=== PATIENT | male | born 1960 | race Caucasian/White ===

== ENCOUNTER 2017-04-16 02:35 | Inpatient (IN) | payer MEDICARE, OTHER ==
[~2017-04-16] VITALS: Ht 185.4 cm; Wt 115.5 kg
[2017-04-16] VITALS (34 sets, daily range): BP systolic 117–171; BP diastolic 87–112
[~2017-04-16 02:35] MED LIST: AMLO5TAB PO; CLAR250T43 PO; LISI40TA4 PO; PANT-47 PO
[2017-04-16] MEDS ORDERED: ipratropium/albuterol 3ml nebule NEB ONE (02:55)
[2017-04-16 03:18] LABS: BASOPHILS % (AUTO) 0.1 % (0-1); EOSINOPHILS % (AUTO) 0.1 % (0-6); HEMATOCRIT 46.1 % (42.0-52.0); HEMOGLOBIN 15.4 g/dl (14.0-17.9); LYMPHOCYTES # (AUTO) 0.7 X10'3 (1.1-4.8); LYMPHOCYTES % (AUTO) 2.2 % (21-51); MEAN CORPUSCULAR HGB CONC 33.4 % (33.0-36.5); MEAN PLATELET VOLUME 8.4 FL (7.4-10.4); MONOCYTES # (AUTO) 0.5 X10'3 (0-0.9); MONOCYTES % (AUTO) 1.4 % (2-12); NEUTROPHILS # (AUTO) 31.6 X10'3 (1.8-7.7); NEUTROPHILS % (AUTO) 96.2 % (42-75); PLATELET COUNT 351 X10'3 (140-440); RED CELL DISTRIBUTION WIDTH 13.7 % (11.5-14.5)
[2017-04-16 03:20] LABS: WHITE BLOOD COUNT 32.8 X10'3 (4.5-11.0)
[2017-04-16] MEDS ORDERED: normal saline 1000ML IV soln IVB ONE ×2 (03:20→03:35)
[2017-04-16] MEDS ORDERED: levoFLOXACIN-Levaquin 750MG/D5 150 ML IV ONE (03:20)
[2017-04-16 03:26] LABS: LARGE PLATELETS FEW; PLATELET ESTIMATE NORMAL; TOTAL CELLS COUNTED 100; TOXIC GRANULATION 2+; TOXIC VACUOLATION 2+
[2017-04-16 03:36] LABS: ALANINE AMINOTRANSFERASE 32 U/L (12-78); ALBUMIN 3.4 G/DL (3.4-5.0); ALBUMIN/GLOBULIN RATIO 0.7 (1.1-1.5); ALKALINE PHOSPHATASE 127 IU/L (46-116); ANION GAP 10 (8-16); ASPARTATE AMINO TRANSFERASE 37 U/L (10-37); BILIRUBIN,TOTAL 1.2 MG/DL (0.1-1.0); BLOOD UREA NITROGEN 29 MG/DL (7-18); BUN/CREATININE RATIO 18.8 (5.4-32.0); CALCIUM 10.1 MG/DL (8.5-10.1); CHLORIDE 95 MMOL/L (99-107); CREATININE 1.54 MG/DL (0.60-1.10); GLUCOSE 125 MG/DL (70-104); POTASSIUM 4.2 MMOL/L (3.5-5.1); SODIUM 134 MMOL/L (135-145); TOTAL CARBON DIOXIDE 29.4 MMOL/L (24-32); TOTAL PROTEIN 8.6 G/DL (6.4-8.2); eGFR 47 ML/MIN
[2017-04-16 04:06] LABS: ABG BASE EXCESS -5.1 mmol/L (-2.0-3.0); ABG HCO3 19.2 mmol/L (22.0-26.0); ABG PCO2 (T) 32.2 mmHg (35.0-48.0); ABG PO2 (T) 73.2 mmHg (83-108); ALLEN'S TEST Positive; FCOHb 1.3 % (0.5-1.5); FLOW 2 L/min; FO2Hb 93.8 % (94-100); PATIENT TEMPERATURE 36.2; RESPIRATORY RATE (OBSERVED) 28 b/min; TOTAL HEMOGLOBIN 13.1 G/dl (14.0-18.0)
[2017-04-16] MEDS ORDERED: normal saline 1000ml 1,000 ML IV SCH (07:11)
[2017-04-16] MEDS ORDERED: magnesium hydroxide 30ml (MOM) UD suspension PO PRN (07:15)
[2017-04-16] MEDS ORDERED: HYDROmorphone 1 mg/ml syringe IV PRN ×2 (07:15)
[2017-04-16] MEDS ORDERED: acetaminophen 650mg rectal suppository RC PRN (07:15)
[2017-04-16] MEDS ORDERED: ondansetron/PF 4mg/2ml inj IV PRN (07:15)
[2017-04-16] MEDS ORDERED: HYDROcodone/acetaminophen 5mg/325mg tablet PO PRN (07:15)
[2017-04-16] MEDS ORDERED: diphenhydrAMINE 50 mg/ml inj IV PRN (07:15)
[2017-04-16] MEDS ORDERED: bisacodyl 10mg suppository rectal RC PRN (07:15)
[2017-04-16] MEDS ORDERED: metoclopramide 5 mg/ml inj IV PRN (07:15)
[2017-04-16] MEDS ORDERED: morphine sulfate 8 MG/ML SYRINGE IV PRN ×2 (07:15)
[2017-04-16] MEDS ORDERED: mag hydrox/Alum hydrox/simeth 30ml oral suspension PO PRN (07:15)
[2017-04-16] MEDS ORDERED: acetaminophen 325mg tablet PO PRN ×2 (07:15)
[2017-04-16] MEDS: nicotine 21mg patch - 24 hr TD SCH (07:37)
[2017-04-16] MEDS: docusate sod 100mg capsule PO SCH ×2 (07:38→20:07)
[2017-04-16] MEDS ORDERED: pantoprazole 40 MG vial IV SCH (08:00)
[2017-04-16] MEDS ORDERED: heparin, porcine 5000 units/ml vial SQ SCH ×2 (08:00→20:00)
[2017-04-16] MEDS ORDERED: CefTRIAXone 1 gm/50ml D5W ADV 50 ML IV SCH (08:00)
[2017-04-16] MEDS ORDERED: methylPREDNISolone sod succ 125mg/2ml vial IV SCH ×2 (08:00→14:00)
[2017-04-16] MEDS: azithromycin/NS 500mg/250ml 250 ML IV SCH (08:03)
[2017-04-16] MEDS ORDERED: furosemide 10 MG/1 ML 10ml inj IV ONE (11:40)
[2017-04-16] MEDS: diphenhydrAMINE 25mg capsule PO PRN (12:46)
[2017-04-16] MEDS: HYDROcodone/acetaminophen 10/325mg tab PO PRN ×2 (12:47→20:09)
[2017-04-16] MEDS: ipratropium/albuterol 3ml nebule NEB SCH ×2 (13:48→19:00)
[2017-04-16] MEDS: normal saline 1000ml 1,000 ML IV SCH (16:18)
[2017-04-16] MEDS ORDERED: MIDAZolam 5mg/ml 2ml vial ONE (17:04)
[2017-04-16] MEDS ORDERED: fentaNYL/PF 50MCG/1 ML 2ML syringe ONE (17:04)
[2017-04-16] MEDS ORDERED: LIDOcaine 1% 30ml vial IJ STA (17:06)
[2017-04-16] MEDS ORDERED: midazolam 2 mg/2 ml injection IV ONE (17:25)
[2017-04-16] MEDS ORDERED: fentaNYL/PF 50MCG/1 ML 2ML syringe IV ONE (17:25)
[2017-04-16] MEDS: lactobacillus rhamnosus 10,000 MMU CELLS/CAPSULE PO SCH (17:30)
[2017-04-16 19:41] LABS: INR 1.2 INR; PARTIAL THROMBOPLASTIN TIME 36 SECONDS (22-32); PROTHROMBIN TIME 12.7 SECONDS (9.0-12.0)
[2017-04-16] MEDS ORDERED: furosemide 20 MG/2 ML vial IV SCH (20:00)
[2017-04-16 20:28] LABS: BODY FLUID PH (NON-PLEURAL) 6.5
[2017-04-16] MEDS ORDERED: temazepam 15mg capsule PO PRN (21:00)
[2017-04-16 21:12] LABS: LDH,BODY FLUID 4905 U/L; TOTAL PROTEIN,BODY FLUID 5.3 G/DL; TRIGLYCERIDES,BODY FLUID 82 MG/DL
[2017-04-16 22:18] LABS: BFAPPEAR TURBID
[2017-04-16 22:19] LABS: BF RBC COUNT 2000 /CU MM; BF WBC COUNT 76500 /CU MM (0-1000); BFCOLOR YELLOW; BFVOLUME 21 ML
[2017-04-16 22:21] LABS: LYMPHOCYTES,BODY FLUID 2 %; NEUTROPHILS,BODY FLUID 98 %
[2017-04-16] MEDS ORDERED: atropine 0.1mg/ml 10ml syringe ONE (22:38)
[2017-04-16] MEDS ORDERED: iohexol 350 MG/ML 50ML vial IV ONE (22:39)
[2017-04-16 23:11] LABS: MONOCYTES,BODY FLUID 0 %
[2017-04-17] VITALS (29 sets, daily range): BP systolic 112–218; BP diastolic 62–110
[2017-04-17] MEDS: ipratropium/albuterol 3ml nebule NEB SCH ×7 (00:11→23:36)
[2017-04-17] MEDS: normal saline 1000ml 1,000 ML IV SCH (04:28)
[2017-04-17] MEDS ORDERED: mupirocin 2% ointment 22GM NS SCH (05:30)
[2017-04-17] MEDS ORDERED: ceFAZolin inj. 3,000 MG in normal saline 100ml IV soln 100 ML IV ONE (05:30)
[2017-04-17] MEDS ORDERED: ceFAZolin 1000mg inj ONE (06:10)
[2017-04-17] MEDS ORDERED: NORepinephrine 1 mg/ml inj IV ONE (06:10)
[2017-04-17] MEDS ORDERED: BUPIVAcaine/PF 2.5 mg/ml (0.25%) 30ml vial ONE (06:10)
[2017-04-17 06:29] LABS: HEMATOCRIT 40.1 % (42.0-52.0); HEMOGLOBIN 13.1 g/dl (14.0-17.9); MEAN CORPUSCULAR HGB CONC 32.8 % (33.0-36.5); MEAN CORPUSCULAR VOLUME 88.4 FL (78-98); MEAN PLATELET VOLUME 8.7 FL (7.4-10.4); PLATELET COUNT 309 X10'3 (140-440); RED BLOOD COUNT 4.53 X10'6 (4.70-6.10); RED CELL DISTRIBUTION WIDTH 13.6 % (11.5-14.5)
[2017-04-17] MEDS ORDERED: sevoflurane 250ml liquid IH ONE (06:43)
[2017-04-17] MEDS ORDERED: fentaNYL/PF 50MCG/1 ML 2ML syringe ONE ×2 (06:46→06:47)
[2017-04-17] MEDS ORDERED: MIDAZolam 1mg/ml 10ml vial ONE (06:46)
[2017-04-17 06:52] LABS: ALANINE AMINOTRANSFERASE 26 U/L (12-78); ALBUMIN 2.3 G/DL (3.4-5.0); ALBUMIN/GLOBULIN RATIO 0.5 (1.1-1.5); ALKALINE PHOSPHATASE 126 IU/L (46-116); ANION GAP 10 (8-16); ASPARTATE AMINO TRANSFERASE 23 U/L (10-37); BLOOD UREA NITROGEN 27 MG/DL (7-18); CALCIUM 9.5 MG/DL (8.5-10.1); CHLORIDE 102 MMOL/L (99-107); CREATININE 1.23 MG/DL (0.60-1.10); GLUCOSE 136 MG/DL (70-104); POTASSIUM 4.1 MMOL/L (3.5-5.1); SODIUM 141 MMOL/L (135-145); TOTAL CARBON DIOXIDE 28.8 MMOL/L (24-32); TOTAL PROTEIN 7.1 G/DL (6.4-8.2); eGFR 61 ML/MIN
[2017-04-17 07:05] LABS: HYPOCHROMASIA 1+; MICROCYTOSIS 1+; PLATELET ESTIMATE NORMAL; TOTAL CELLS COUNTED 100
[2017-04-17] MEDS: lactobacillus rhamnosus 10,000 MMU CELLS/CAPSULE PO SCH ×2 (07:30→17:04)
[2017-04-17] MEDS: docusate sod 100mg capsule PO SCH ×3 (08:00→20:00)
[2017-04-17 08:35] LABS: WHITE BLOOD COUNT 32.5 X10'3 (4.5-11.0)
[2017-04-17] MEDS ORDERED: pancuronium br 1mg/ml inj IV ONE (08:51)
[2017-04-17] MEDS ORDERED: rocuronium 10mg/ml inj IV ONE (08:51)
[2017-04-17] MEDS ORDERED: etomidate 2mg/ml inj. ONE (08:51)
[2017-04-17] MEDS ORDERED: niCARDipine/sod cl 20mg/200ml 200 ML IV PRN (08:54)
[2017-04-17] MEDS ORDERED: DOPamine 400mg/D5W 250ml 250 ML IV PRN (08:54)
[2017-04-17] MEDS ORDERED: nitroGLYCERIN-Tridil 50MG/D5W 250 ML IV PRN (08:54)
[2017-04-17] MEDS ORDERED: magnesium hydroxide 30ml (MOM) UD suspension PO PRN (08:55)
[2017-04-17] MEDS ORDERED: sodium phosphate inj. 15 MMOL in dextrose 5%-water 150 ML IV PRN (08:55)
[2017-04-17] MEDS ORDERED: acetaminophen 325mg tablet PO PRN (08:55)
[2017-04-17] MEDS ORDERED: magnesium 2GM in 50ml NS 50 ML IV PRN (08:55)
[2017-04-17] MEDS ORDERED: Neutra Phos packet PO PRN (08:55)
[2017-04-17] MEDS ORDERED: metoclopramide 5 mg/ml inj IV PRN (08:55)
[2017-04-17] MEDS ORDERED: sodium phosphate inj. 30 MMOL in dextrose 5%-water 250 ML IV PRN (08:55)
[2017-04-17] MEDS ORDERED: dextrose 50%-water 50ml dispensing syringe IV PRN (08:55)
[2017-04-17] MEDS ORDERED: normal saline 250ml IV soln 250 ML IV PRN (08:55)
[2017-04-17] MEDS ORDERED: potassium Cl 20mEq/100mL bag 100 ML IV PRN ×2 (08:55)
[2017-04-17] MEDS ORDERED: magnesium 4gm in 100ml NS 100 ML IV PRN (08:55)
[2017-04-17] MEDS ORDERED: albumin (Human) 5% 250ml 250 ML IV PRN (08:55)
[2017-04-17] MEDS: insulin Lispro (HumaLOG) vial - multi-dose SQ SCH ×3 (09:00→17:04)
[2017-04-17 09:21] LABS: ABG BASE EXCESS -2.4 mmol/L (-2.0-3.0); ABG HCO3 24.2 mmol/L (22.0-26.0); ABG OXYGEN SATURATION 94.8 % (95-98); ABG PH (T) 7.311 (7.350-7.450); ABG PO2 (T) 79.9 mmHg (83-108); FCOHb 0.4 % (0.5-1.5); FMetHb 0.1 % (0.3-1.12); FO2Hb 94.3 % (94-100); MINUTE VOLUME 8 L/min; PEEP 5 cm H2O; RESPIRATORY RATE 14 b/min; TIDAL VOLUME 600 mL; TOTAL HEMOGLOBIN 13.3 G/dl (14.0-18.0)
[2017-04-17 09:30] LABS: BASOPHILS % (AUTO) 0 % (0-1); EOSINOPHILS % (AUTO) 0 % (0-6); HEMATOCRIT 37.7 % (42.0-52.0); HEMOGLOBIN 12.4 g/dl (14.0-17.9); LYMPHOCYTES # (AUTO) 0.5 X10'3 (1.1-4.8); LYMPHOCYTES % (AUTO) 1.5 % (21-51); MEAN CORPUSCULAR HEMOGLOBIN 28.8 PG (27.0-31.0); MEAN CORPUSCULAR HGB CONC 32.8 % (33.0-36.5); MEAN CORPUSCULAR VOLUME 87.8 FL (78-98); MEAN PLATELET VOLUME 8.4 FL (7.4-10.4); MONOCYTES # (AUTO) 0.2 X10'3 (0-0.9); MONOCYTES % (AUTO) 0.7 % (2-12); NEUTROPHILS # (AUTO) 32.9 X10'3 (1.8-7.7); NEUTROPHILS % (AUTO) 97.8 % (42-75); PLATELET COUNT 322 X10'3 (140-440); RED BLOOD COUNT 4.29 X10'6 (4.70-6.10); RED CELL DISTRIBUTION WIDTH 13.8 % (11.5-14.5)
[2017-04-17 09:34] LABS: WHITE BLOOD COUNT 33.7 X10'3 (4.5-11.0)
[2017-04-17] MEDS ORDERED: labetalol 5mg/ml 20ml inj. IV ONE (09:44)
[2017-04-17 09:45] LABS: INR 1.3 INR; PARTIAL THROMBOPLASTIN TIME 34 SECONDS (22-32); PROTHROMBIN TIME 13.2 SECONDS (9.0-12.0)
[2017-04-17 09:49] LABS: ALANINE AMINOTRANSFERASE 21 U/L (12-78); ALBUMIN 2.1 G/DL (3.4-5.0); ALBUMIN/GLOBULIN RATIO 0.5 (1.1-1.5); ALKALINE PHOSPHATASE 103 IU/L (46-116); ANION GAP 10 (8-16); ASPARTATE AMINO TRANSFERASE 21 U/L (10-37); BILIRUBIN,TOTAL 0.9 MG/DL (0.1-1.0); BLOOD UREA NITROGEN 29 MG/DL (7-18); BUN/CREATININE RATIO 26.6 (5.4-32.0); CALCIUM 8.8 MG/DL (8.5-10.1); CHLORIDE 104 MMOL/L (99-107); CREATININE 1.09 MG/DL (0.60-1.10); GLUCOSE 165 MG/DL (70-104); PHOSPHORUS 4.3 MG/DL (2.3-4.5); SODIUM 139 MMOL/L (135-145); TOTAL CARBON DIOXIDE 25.4 MMOL/L (24-32); TOTAL PROTEIN 6.7 G/DL (6.4-8.2); eGFR 70 ML/MIN
[2017-04-17] MEDS ORDERED: labetalol 20mg/4ml (5mg/ml) syringe IV PRN (09:50)
[2017-04-17] MEDS ORDERED: NICARDIPINE IV ONE (09:55)
[2017-04-17] MEDS ORDERED: SODIUM CHLORIDE IV ONE (09:55)
[2017-04-17] MEDS: azithromycin/NS 500mg/250ml 250 ML IV SCH (10:05)
[2017-04-17] MEDS: sodium chloride 0.45% 1,000 ML IV SCH (10:07)
[2017-04-17] MEDS ORDERED: midazolam 100mg in NS 100ml 100 ML IV PRN (10:39)
[2017-04-17] MEDS ORDERED: FENTANYL-0.9 % NACL/PF 100 ML IV PRN (10:39)
[2017-04-17] MEDS: labetalol 20mg/4ml (5mg/ml) syringe IV PRN ×2 (11:07→13:49)
[2017-04-17] MEDS: nicotine 21mg patch - 24 hr TD SCH (12:09)
[2017-04-17] MEDS: cefTRIAXone 1g/NS 100ml IVPB 100 ML IV SCH (12:09)
[2017-04-17] MEDS: insulin regular, human inj. 100 UNITS in normal saline 100ml IV soln 100 ML IV SCH ×6 (14:07→17:03)
[2017-04-17 15:24] LABS: BASOPHILS # (AUTO) 0.2 X10'3 (0-0.2); BASOPHILS % (AUTO) 0.8 % (0-1); EOSINOPHILS % (AUTO) 0 % (0-6); HEMATOCRIT 34.8 % (42.0-52.0); HEMOGLOBIN 11.7 g/dl (14.0-17.9); LYMPHOCYTES # (AUTO) 0.4 X10'3 (1.1-4.8); LYMPHOCYTES % (AUTO) 1.7 % (21-51); MEAN CORPUSCULAR HEMOGLOBIN 29.2 PG (27.0-31.0); MEAN CORPUSCULAR HGB CONC 33.6 % (33.0-36.5); MEAN CORPUSCULAR VOLUME 86.9 FL (78-98); MEAN PLATELET VOLUME 8.5 FL (7.4-10.4); MONOCYTES # (AUTO) 0.9 X10'3 (0-0.9); MONOCYTES % (AUTO) 3.4 % (2-12); NEUTROPHILS # (AUTO) 24.3 X10'3 (1.8-7.7); NEUTROPHILS % (AUTO) 94.1 % (42-75); PLATELET COUNT 286 X10'3 (140-440); RED CELL DISTRIBUTION WIDTH 13.7 % (11.5-14.5)
[2017-04-17 15:31] LABS: ALBUMIN 1.9 G/DL (3.4-5.0); ANION GAP 8 (8-16); BLOOD UREA NITROGEN 31 MG/DL (7-18); BUN/CREATININE RATIO 29.5 (5.4-32.0); CALCIUM 8.9 MG/DL (8.5-10.1); CHLORIDE 107 MMOL/L (99-107); CREATININE 1.05 MG/DL (0.60-1.10); GLUCOSE 158 MG/DL (70-104); POTASSIUM 3.9 MMOL/L (3.5-5.1); SODIUM 142 MMOL/L (135-145); TOTAL CARBON DIOXIDE 27.2 MMOL/L (24-32); eGFR 73 ML/MIN
[2017-04-17 15:32] LABS: WHITE BLOOD COUNT 25.8 X10'3 (4.5-11.0)
[2017-04-17] MEDS ORDERED: CEFAZOLIN SODIUM/NORMAL SALINE 100 ML IV SCH (16:00)
[2017-04-17] MEDS: potassium Cl 20mEq/100mL bag 100 ML IV PRN ×2 (19:45→22:55)
[2017-04-17] MEDS: mupirocin 2% ointment 22GM NS SCH (21:01)
[2017-04-18] VITALS (24 sets, daily range): BP systolic 104–212; BP diastolic 70–123
[2017-04-18 01:43] LABS: BASOPHILS % (AUTO) 0 % (0-1); EOSINOPHILS % (AUTO) 0 % (0-6); HEMATOCRIT 33.7 % (42.0-52.0); HEMOGLOBIN 11.3 g/dl (14.0-17.9); LYMPHOCYTES # (AUTO) 0.6 X10'3 (1.1-4.8); LYMPHOCYTES % (AUTO) 2.1 % (21-51); MEAN CORPUSCULAR HEMOGLOBIN 29.2 PG (27.0-31.0); MEAN CORPUSCULAR HGB CONC 33.6 % (33.0-36.5); MEAN CORPUSCULAR VOLUME 87.1 FL (78-98); MEAN PLATELET VOLUME 8.4 FL (7.4-10.4); MONOCYTES # (AUTO) 1.1 X10'3 (0-0.9); MONOCYTES % (AUTO) 4.5 % (2-12); NEUTROPHILS # (AUTO) 24.1 X10'3 (1.8-7.7); NEUTROPHILS % (AUTO) 93.4 % (42-75); PLATELET COUNT 340 X10'3 (140-440); RED BLOOD COUNT 3.86 X10'6 (4.70-6.10); RED CELL DISTRIBUTION WIDTH 13.8 % (11.5-14.5)
[2017-04-18 01:45] LABS: WHITE BLOOD COUNT 25.8 X10'3 (4.5-11.0)
[2017-04-18 01:47] LABS: INR 1.2 INR; PARTIAL THROMBOPLASTIN TIME 31 SECONDS (22-32); PROTHROMBIN TIME 12.3 SECONDS (9.0-12.0)
[2017-04-18 01:54] LABS: ALANINE AMINOTRANSFERASE 20 U/L (12-78); ALBUMIN 1.9 G/DL (3.4-5.0); ALBUMIN/GLOBULIN RATIO 0.5 (1.1-1.5); ALKALINE PHOSPHATASE 87 IU/L (46-116); ANION GAP 9 (8-16); ASPARTATE AMINO TRANSFERASE 16 U/L (10-37); BILIRUBIN,TOTAL 0.4 MG/DL (0.1-1.0); BLOOD UREA NITROGEN 33 MG/DL (7-18); CALCIUM 9.3 MG/DL (8.5-10.1); CHLORIDE 110 MMOL/L (99-107); CREATININE 0.97 MG/DL (0.60-1.10); GLUCOSE 135 MG/DL (70-104); MAGNESIUM 2.9 MG/DL (1.5-2.4); PHOSPHORUS 2.7 MG/DL (2.3-4.5); POTASSIUM 4.4 MMOL/L (3.5-5.1); SODIUM 146 MMOL/L (135-145); TOTAL PROTEIN 6.1 G/DL (6.4-8.2); eGFR 80 ML/MIN
[2017-04-18 02:26] LABS: TOTAL CELLS COUNTED 100
[2017-04-18 02:27] LABS: PLATELET ESTIMATE NORMAL
[2017-04-18] MEDS: ipratropium/albuterol 3ml nebule NEB SCH ×6 (03:03→23:23)
[2017-04-18 03:20] LABS: ABG BASE EXCESS 1.1 mmol/L (-2.0-3.0); ABG HCO3 25.3 mmol/L (22.0-26.0); ABG OXYGEN SATURATION 97.4 % (95-98); ABG PCO2 (T) 38.9 mmHg (35.0-48.0); ABG PH (T) 7.431 (7.350-7.450); ABG PO2 (T) 102.6 mmHg (83-108); FCOHb 0.4 % (0.5-1.5); FMetHb 0.3 % (0.3-1.12); FO2Hb 96.7 % (94-100); MINUTE VOLUME 10 L/min; PEEP 5 cm H2O; RESPIRATORY RATE 16 b/min; RESPIRATORY RATE (OBSERVED) 16 b/min; TIDAL VOLUME 600 mL; TOTAL HEMOGLOBIN 13.9 G/dl (14.0-18.0)
[2017-04-18] MEDS: insulin regular, human inj. 100 UNITS in normal saline 100ml IV soln 100 ML IV SCH ×2 (07:14)
[2017-04-18] MEDS: cefTRIAXone 1g/NS 100ml IVPB 100 ML IV SCH (07:21)
[2017-04-18] MEDS: azithromycin/NS 500mg/250ml 250 ML IV SCH (07:21)
[2017-04-18] MEDS: lactobacillus rhamnosus 10,000 MMU CELLS/CAPSULE PO SCH ×2 (07:21→17:18)
[2017-04-18] MEDS: pantoprazole 40mg Tablet.DR PO SCH (07:21)
[2017-04-18] MEDS: mupirocin 2% ointment 22GM NS SCH ×2 (07:22→20:29)
[2017-04-18] MEDS: docusate sod 100mg capsule PO SCH ×3 (07:22→20:29)
[2017-04-18] MEDS: insulin Lispro (HumaLOG) vial - multi-dose SQ SCH (07:22)
[2017-04-18] MEDS: sodium chloride 0.45% 1,000 ML IV SCH (14:20)
[2017-04-18] MEDS: colchicine 0.6mg tablet PO SCH (14:55)
[2017-04-18] MEDS: penicillin G potassium inj 4,000,000 UNIT in normal saline 100ml IV soln 100 ML IV SCH ×2 (16:16→20:29)
[2017-04-18] MEDS: HYDROcodone/acetaminophen 10/325mg tab PO PRN (19:44)
[2017-04-18] MEDS: labetalol 20mg/4ml (5mg/ml) syringe IV PRN (20:01)
[2017-04-19] VITALS (23 sets, daily range): BP systolic 112–182; BP diastolic 73–123
[2017-04-19] MEDS: penicillin G potassium inj 4,000,000 UNIT in normal saline 100ml IV soln 100 ML IV SCH ×6 (01:29→19:39)
[2017-04-19 03:11] LABS: BASOPHILS # (AUTO) 0.1 X10'3 (0-0.2); BASOPHILS % (AUTO) 0.3 % (0-1); EOSINOPHILS # (AUTO) 0.3 X10'3 (0-0.9); EOSINOPHILS % (AUTO) 1.4 % (0-6); HEMATOCRIT 36.1 % (42.0-52.0); HEMOGLOBIN 11.9 g/dl (14.0-17.9); LYMPHOCYTES # (AUTO) 1.4 X10'3 (1.1-4.8); LYMPHOCYTES % (AUTO) 6.7 % (21-51); MEAN CORPUSCULAR HGB CONC 32.9 % (33.0-36.5); MEAN CORPUSCULAR VOLUME 88.1 FL (78-98); MEAN PLATELET VOLUME 8.2 FL (7.4-10.4); MONOCYTES # (AUTO) 1.1 X10'3 (0-0.9); MONOCYTES % (AUTO) 5.4 % (2-12); NEUTROPHILS # (AUTO) 17.9 X10'3 (1.8-7.7); NEUTROPHILS % (AUTO) 86.2 % (42-75); PLATELET COUNT 383 X10'3 (140-440); RED CELL DISTRIBUTION WIDTH 14.2 % (11.5-14.5); WHITE BLOOD COUNT 20.8 X10'3 (4.5-11.0)
[2017-04-19] MEDS: ipratropium/albuterol 3ml nebule NEB SCH ×6 (03:30→23:50)
[2017-04-19 03:41] LABS: ALANINE AMINOTRANSFERASE 52 U/L (12-78); ALBUMIN/GLOBULIN RATIO 0.5 (1.1-1.5); ALKALINE PHOSPHATASE 152 IU/L (46-116); ANION GAP 7 (8-16); ASPARTATE AMINO TRANSFERASE 68 U/L (10-37); BLOOD UREA NITROGEN 33 MG/DL (7-18); BUN/CREATININE RATIO 31.7 (5.4-32.0); CALCIUM 8.9 MG/DL (8.5-10.1); CHLORIDE 105 MMOL/L (99-107); CREATININE 1.04 MG/DL (0.60-1.10); GLUCOSE 130 MG/DL (70-104); MAGNESIUM 2.2 MG/DL (1.5-2.4); PHOSPHORUS 4.9 MG/DL (2.3-4.5); POTASSIUM 4.4 MMOL/L (3.5-5.1); SODIUM 142 MMOL/L (135-145); TOTAL PROTEIN 6.3 G/DL (6.4-8.2); eGFR 74 ML/MIN
[2017-04-19] MEDS: HYDROcodone/acetaminophen 10/325mg tab PO PRN ×4 (05:41→19:15)
[2017-04-19 07:41] LABS: ANISOCYTOSIS 1+; HYPOCHROMASIA 1+; MICROCYTOSIS 1+; PLATELET ESTIMATE NORMAL; TOTAL CELLS COUNTED 100; TOXIC GRANULATION 1+
[2017-04-19] MEDS: morphine sulfate 8 MG/ML SYRINGE IV PRN ×4 (08:00→18:00)
[2017-04-19] MEDS: colchicine 0.6mg tablet PO SCH (08:04)
[2017-04-19] MEDS: pantoprazole 40mg Tablet.DR PO SCH (08:05)
[2017-04-19] MEDS: allopurinol 300 MG tablet PO SCH (08:05)
[2017-04-19] MEDS: lactobacillus rhamnosus 10,000 MMU CELLS/CAPSULE PO SCH ×2 (08:06→18:01)
[2017-04-19] MEDS: mupirocin 2% ointment 22GM NS SCH (08:06)
[2017-04-19] MEDS: docusate sod 100mg capsule PO SCH ×2 (08:06→19:39)
[2017-04-19] MEDS: labetalol 20mg/4ml (5mg/ml) syringe IV PRN (08:21)
[2017-04-19] MEDS: ibuprofen tablet 400 MG TABLET PO SCH ×2 (11:57→18:01)
[2017-04-19] MEDS: labetalol 100mg tablet PO SCH ×3 (11:58→19:39)
[2017-04-19] MEDS ORDERED: furosemide 40mg/4ml inj ONE (14:01)
[2017-04-19] MEDS ORDERED: furosemide 10 MG/1 ML 10ml inj IV ONE (14:10)
[2017-04-19] MEDS: NUT.TX.GLUC.INTOLER,LAC-FR,REG (BOOST GLUCOSE CONTROL) 237 ML PO SCH (18:00)
[2017-04-20] VITALS (25 sets, daily range): BP systolic 82–156; BP diastolic 60–111
[2017-04-20] MEDS: labetalol 100mg tablet PO SCH ×7 (00:19→23:35)
[2017-04-20] MEDS: penicillin G potassium inj 4,000,000 UNIT in normal saline 100ml IV soln 100 ML IV SCH ×7 (00:20→23:35)
[2017-04-20] MEDS: morphine sulfate 8 MG/ML SYRINGE IV PRN ×5 (01:52→23:35)
[2017-04-20] MEDS: ipratropium/albuterol 3ml nebule NEB SCH ×5 (03:40→19:15)
[2017-04-20] MEDS: HYDROcodone/acetaminophen 10/325mg tab PO PRN ×4 (05:03→19:35)
[2017-04-20 05:35] LABS: BASOPHILS # (AUTO) 0.1 X10'3 (0-0.2); BASOPHILS % (AUTO) 0.6 % (0-1); EOSINOPHILS # (AUTO) 0.2 X10'3 (0-0.9); EOSINOPHILS % (AUTO) 0.8 % (0-6); HEMATOCRIT 39.8 % (42.0-52.0); HEMOGLOBIN 13.2 g/dl (14.0-17.9); LYMPHOCYTES # (AUTO) 1.4 X10'3 (1.1-4.8); LYMPHOCYTES % (AUTO) 6.1 % (21-51); MEAN CORPUSCULAR HEMOGLOBIN 29.3 PG (27.0-31.0); MEAN CORPUSCULAR VOLUME 88.6 FL (78-98); MEAN PLATELET VOLUME 8.6 FL (7.4-10.4); MONOCYTES # (AUTO) 2.1 X10'3 (0-0.9); MONOCYTES % (AUTO) 9.5 % (2-12); NEUTROPHILS # (AUTO) 18.3 X10'3 (1.8-7.7); PLATELET COUNT 399 X10'3 (140-440); RED CELL DISTRIBUTION WIDTH 14.2 % (11.5-14.5)
[2017-04-20 06:41] LABS: ALANINE AMINOTRANSFERASE 39 U/L (12-78); ALBUMIN 2.1 G/DL (3.4-5.0); ALBUMIN/GLOBULIN RATIO 0.4 (1.1-1.5); ALKALINE PHOSPHATASE 130 IU/L (46-116); ANION GAP 9 (8-16); ASPARTATE AMINO TRANSFERASE 31 U/L (10-37); BILIRUBIN,TOTAL 1.1 MG/DL (0.1-1.0); BLOOD UREA NITROGEN 34 MG/DL (7-18); BUN/CREATININE RATIO 43.6 (5.4-32.0); CALCIUM 9.7 MG/DL (8.5-10.1); CHLORIDE 103 MMOL/L (99-107); CREATININE 0.78 MG/DL (0.60-1.10); GLUCOSE 128 MG/DL (70-104); MAGNESIUM 2.3 MG/DL (1.5-2.4); PHOSPHORUS 4.7 MG/DL (2.3-4.5); POTASSIUM 4.9 MMOL/L (3.5-5.1); SODIUM 140 MMOL/L (135-145); TOTAL CARBON DIOXIDE 28.5 MMOL/L (24-32); TOTAL PROTEIN 6.9 G/DL (6.4-8.2); eGFR > 90 ML/MIN
[2017-04-20 06:58] LABS: TOTAL CELLS COUNTED 100
[2017-04-20 07:01] LABS: PLATELET ESTIMATE NORMAL; POLYCHROMASIA 1+; TOXIC GRANULATION 2+
[2017-04-20] MEDS: colchicine 0.6mg tablet PO SCH (08:43)
[2017-04-20] MEDS: pantoprazole 40mg Tablet.DR PO SCH (08:43)
[2017-04-20] MEDS: ibuprofen tablet 400 MG TABLET PO SCH ×3 (08:43→17:19)
[2017-04-20] MEDS: allopurinol 300 MG tablet PO SCH (08:43)
[2017-04-20] MEDS: docusate sod 100mg capsule PO SCH ×2 (08:43→19:34)
[2017-04-20] MEDS: lactobacillus rhamnosus 10,000 MMU CELLS/CAPSULE PO SCH ×2 (08:43→16:33)
[2017-04-20] MEDS: lisinopril 20mg tablet PO SCH (08:43)
[2017-04-20] MEDS: NUT.TX.GLUC.INTOLER,LAC-FR,REG (BOOST GLUCOSE CONTROL) 237 ML PO SCH ×3 (08:53→18:00)
[2017-04-21] VITALS (24 sets, daily range): BP systolic 78–123; BP diastolic 52–79
[2017-04-21] MEDS: ipratropium/albuterol 3ml nebule NEB SCH ×7 (00:03→22:58)
[2017-04-21] MEDS: labetalol 100mg tablet PO SCH ×4 (03:54→14:20)
[2017-04-21] MEDS: penicillin G potassium inj 4,000,000 UNIT in normal saline 100ml IV soln 100 ML IV SCH ×6 (04:03→23:57)
[2017-04-21 05:22] LABS: BASOPHILS % (AUTO) 0.1 % (0-1); EOSINOPHILS # (AUTO) 0.4 X10'3 (0-0.9); EOSINOPHILS % (AUTO) 1.8 % (0-6); HEMATOCRIT 35.9 % (42.0-52.0); HEMOGLOBIN 11.9 g/dl (14.0-17.9); LYMPHOCYTES # (AUTO) 1.3 X10'3 (1.1-4.8); LYMPHOCYTES % (AUTO) 5.5 % (21-51); MEAN CORPUSCULAR HEMOGLOBIN 29.2 PG (27.0-31.0); MEAN CORPUSCULAR HGB CONC 33.2 % (33.0-36.5); MEAN CORPUSCULAR VOLUME 88.1 FL (78-98); MEAN PLATELET VOLUME 8.3 FL (7.4-10.4); MONOCYTES # (AUTO) 1.1 X10'3 (0-0.9); MONOCYTES % (AUTO) 4.6 % (2-12); NEUTROPHILS # (AUTO) 21.3 X10'3 (1.8-7.7); PLATELET COUNT 396 X10'3 (140-440); RED BLOOD COUNT 4.08 X10'6 (4.70-6.10); WHITE BLOOD COUNT 24.2 X10'3 (4.5-11.0)
[2017-04-21 06:07] LABS: ALANINE AMINOTRANSFERASE 31 U/L (12-78); ALBUMIN/GLOBULIN RATIO 0.5 (1.1-1.5); ALKALINE PHOSPHATASE 115 IU/L (46-116); ANION GAP 6 (8-16); ASPARTATE AMINO TRANSFERASE 18 U/L (10-37); BILIRUBIN,TOTAL 0.8 MG/DL (0.1-1.0); BLOOD UREA NITROGEN 39 MG/DL (7-18); BUN/CREATININE RATIO 40.6 (5.4-32.0); CALCIUM 9.1 MG/DL (8.5-10.1); CHLORIDE 101 MMOL/L (99-107); CREATININE 0.96 MG/DL (0.60-1.10); GLUCOSE 126 MG/DL (70-104); MAGNESIUM 2.2 MG/DL (1.5-2.4); PHOSPHORUS 4.6 MG/DL (2.3-4.5); POTASSIUM 4.7 MMOL/L (3.5-5.1); SODIUM 139 MMOL/L (135-145); TOTAL CARBON DIOXIDE 32.1 MMOL/L (24-32); TOTAL PROTEIN 6.4 G/DL (6.4-8.2); eGFR 81 ML/MIN
[2017-04-21 08:00] LABS: TOTAL CELLS COUNTED 100
[2017-04-21] MEDS: NUT.TX.GLUC.INTOLER,LAC-FR,REG (BOOST GLUCOSE CONTROL) 237 ML PO SCH ×3 (08:00→18:00)
[2017-04-21] MEDS: lisinopril 20mg tablet PO SCH (08:00)
[2017-04-21 08:01] LABS: PLATELET ESTIMATE NORMAL
[2017-04-21] MEDS: lactobacillus rhamnosus 10,000 MMU CELLS/CAPSULE PO SCH ×2 (08:19→17:02)
[2017-04-21] MEDS: allopurinol 300 MG tablet PO SCH (08:19)
[2017-04-21] MEDS: pantoprazole 40mg Tablet.DR PO SCH (08:19)
[2017-04-21] MEDS: docusate sod 100mg capsule PO SCH ×2 (08:19→19:10)
[2017-04-21] MEDS: colchicine 0.6mg tablet PO SCH (08:19)
[2017-04-21] MEDS: ibuprofen tablet 400 MG TABLET PO SCH ×3 (08:19→17:03)
[2017-04-21] MEDS: HYDROcodone/acetaminophen 10/325mg tab PO PRN ×3 (08:58→21:54)
[2017-04-21] MEDS: normal saline 1000ml 1,000 ML IV SCH ×2 (16:52→23:57)
[2017-04-22] VITALS (17 sets, daily range): BP systolic 78–138; BP diastolic 53–97
[2017-04-22] MEDS: ipratropium/albuterol 3ml nebule NEB SCH ×4 (02:48→20:40)
[2017-04-22] MEDS: penicillin G potassium inj 4,000,000 UNIT in normal saline 100ml IV soln 100 ML IV SCH ×5 (04:02→20:38)
[2017-04-22 05:34] LABS: BASOPHILS % (AUTO) 0 % (0-1); EOSINOPHILS # (AUTO) 0.5 X10'3 (0-0.9); EOSINOPHILS % (AUTO) 2.1 % (0-6); HEMATOCRIT 35.6 % (42.0-52.0); HEMOGLOBIN 11.9 g/dl (14.0-17.9); LYMPHOCYTES # (AUTO) 1.1 X10'3 (1.1-4.8); LYMPHOCYTES % (AUTO) 4.8 % (21-51); MEAN CORPUSCULAR HEMOGLOBIN 29.6 PG (27.0-31.0); MEAN CORPUSCULAR HGB CONC 33.4 % (33.0-36.5); MEAN CORPUSCULAR VOLUME 88.6 FL (78-98); MEAN PLATELET VOLUME 8.8 FL (7.4-10.4); MONOCYTES # (AUTO) 0.3 X10'3 (0-0.9); MONOCYTES % (AUTO) 1.1 % (2-12); NEUTROPHILS # (AUTO) 21.7 X10'3 (1.8-7.7); PLATELET COUNT 377 X10'3 (140-440); RED BLOOD COUNT 4.01 X10'6 (4.70-6.10); RED CELL DISTRIBUTION WIDTH 14.1 % (11.5-14.5); WHITE BLOOD COUNT 23.6 X10'3 (4.5-11.0)
[2017-04-22 06:37] LABS: ALANINE AMINOTRANSFERASE 30 U/L (12-78); ALBUMIN/GLOBULIN RATIO 0.4 (1.1-1.5); ALKALINE PHOSPHATASE 148 IU/L (46-116); ANION GAP 10 (8-16); ASPARTATE AMINO TRANSFERASE 26 U/L (10-37); BILIRUBIN,TOTAL 0.6 MG/DL (0.1-1.0); BLOOD UREA NITROGEN 37 MG/DL (7-18); BUN/CREATININE RATIO 37.4 (5.4-32.0); CALCIUM 8.8 MG/DL (8.5-10.1); CHLORIDE 102 MMOL/L (99-107); CREATININE 0.99 MG/DL (0.60-1.10); GLUCOSE 100 MG/DL (70-104); MAGNESIUM 2.1 MG/DL (1.5-2.4); PHOSPHORUS 3.5 MG/DL (2.3-4.5); POTASSIUM 4.4 MMOL/L (3.5-5.1); SODIUM 139 MMOL/L (135-145); TOTAL CARBON DIOXIDE 27.4 MMOL/L (24-32); TOTAL PROTEIN 6.8 G/DL (6.4-8.2); eGFR 78 ML/MIN
[2017-04-22 07:28] LABS: TOTAL CELLS COUNTED 100
[2017-04-22 07:31] LABS: PLATELET ESTIMATE NORMAL; TOXIC GRANULATION 1+
[2017-04-22] MEDS: pantoprazole 40mg Tablet.DR PO SCH (07:54)
[2017-04-22] MEDS: lactobacillus rhamnosus 10,000 MMU CELLS/CAPSULE PO SCH ×2 (07:54→16:34)
[2017-04-22] MEDS: normal saline 1000ml 1,000 ML IV SCH (07:54)
[2017-04-22] MEDS: allopurinol 300 MG tablet PO SCH (07:55)
[2017-04-22] MEDS: docusate sod 100mg capsule PO SCH ×2 (07:55→20:37)
[2017-04-22] MEDS: colchicine 0.6mg tablet PO SCH (07:55)
[2017-04-22] MEDS: ibuprofen tablet 400 MG TABLET PO SCH ×3 (07:55→16:34)
[2017-04-22] MEDS: NUT.TX.GLUC.INTOLER,LAC-FR,REG (BOOST GLUCOSE CONTROL) 237 ML PO SCH ×3 (08:22→18:00)
[2017-04-22] MEDS: HYDROcodone/acetaminophen 10/325mg tab PO PRN ×3 (09:36→20:38)
[2017-04-22] MEDS ORDERED: ipratropium/albuterol 3ml nebule NEB PRN (10:55)
[2017-04-22] MEDS ORDERED: POTASSIUM 40MEQ/500ML NS ***PERIPHERAL LINE REPLACE IV PRN (13:55)
[2017-04-22] MEDS ORDERED: potassium Cl 20 mEq SR tablet PO PRN ×2 (13:55)
[2017-04-22] MEDS ORDERED: MAGNESIUM 2 GRAMS IN 50ML BAG IV PRN (13:55)
[2017-04-22] MEDS: diphenhydrAMINE 25mg capsule PO PRN (23:42)
[2017-04-23] VITALS (8 sets, daily range): BP systolic 144–191; BP diastolic 94–122
[2017-04-23] MEDS: penicillin G potassium inj 4,000,000 UNIT in normal saline 100ml IV soln 100 ML IV SCH ×3 (00:16→09:06)
[2017-04-23] MEDS: ipratropium/albuterol 3ml nebule NEB SCH ×4 (03:43→20:30)
[2017-04-23] MEDS: HYDROcodone/acetaminophen 10/325mg tab PO PRN ×2 (05:51→22:34)
[2017-04-23 06:50] LABS: MAGNESIUM 1.7 MG/DL (1.5-2.4); PHOSPHORUS 2.7 MG/DL (2.3-4.5); POTASSIUM 4.1 MMOL/L (3.5-5.1)
[2017-04-23] MEDS: lactobacillus rhamnosus 10,000 MMU CELLS/CAPSULE PO SCH ×2 (07:32→16:46)
[2017-04-23] MEDS: colchicine 0.6mg tablet PO SCH (07:32)
[2017-04-23] MEDS: pantoprazole 40mg Tablet.DR PO SCH (07:33)
[2017-04-23] MEDS: ibuprofen tablet 400 MG TABLET PO SCH (07:33)
[2017-04-23] MEDS: docusate sod 100mg capsule PO SCH ×2 (07:35→20:02)
[2017-04-23] MEDS: allopurinol 300 MG tablet PO SCH (09:05)
[2017-04-23] MEDS: NUT.TX.GLUC.INTOLER,LAC-FR,REG (BOOST GLUCOSE CONTROL) 237 ML PO SCH ×3 (09:05→18:07)
[2017-04-23] MEDS: levoFLOXACIN 750MG TABLET PO SCH (11:25)
[2017-04-23 14:23] LABS: HIV ANTIBODY 1&2 RAPID NON-REACTIVE (Neg)
[2017-04-23] MEDS: lisinopril 10 MG tablet PO SCH (16:46)
[2017-04-23 19:01] LABS: BASOPHILS % (AUTO) 0.1 % (0-1); EOSINOPHILS # (AUTO) 0.4 X10'3 (0-0.9); HEMATOCRIT 34.2 % (42.0-52.0); HEMOGLOBIN 11.4 g/dl (14.0-17.9); LYMPHOCYTES # (AUTO) 1.1 X10'3 (1.1-4.8); LYMPHOCYTES % (AUTO) 5.9 % (21-51); MEAN CORPUSCULAR HEMOGLOBIN 29.2 PG (27.0-31.0); MEAN CORPUSCULAR HGB CONC 33.3 % (33.0-36.5); MEAN CORPUSCULAR VOLUME 87.5 FL (78-98); MEAN PLATELET VOLUME 8.7 FL (7.4-10.4); MONOCYTES # (AUTO) 1.2 X10'3 (0-0.9); MONOCYTES % (AUTO) 6.6 % (2-12); NEUTROPHILS # (AUTO) 15.6 X10'3 (1.8-7.7); NEUTROPHILS % (AUTO) 85.4 % (42-75); PLATELET COUNT 441 X10'3 (140-440); RED BLOOD COUNT 3.91 X10'6 (4.70-6.10); RED CELL DISTRIBUTION WIDTH 13.8 % (11.5-14.5); WHITE BLOOD COUNT 18.3 X10'3 (4.5-11.0)
[2017-04-23 19:14] LABS: ANION GAP 9 (8-16); BLOOD UREA NITROGEN 21 MG/DL (7-18); BUN/CREATININE RATIO 25.9 (5.4-32.0); CALCIUM 8.6 MG/DL (8.5-10.1); CHLORIDE 103 MMOL/L (99-107); CREATININE 0.81 MG/DL (0.60-1.10); GLUCOSE 104 MG/DL (70-104); POTASSIUM 4.1 MMOL/L (3.5-5.1); SODIUM 139 MMOL/L (135-145); TOTAL CARBON DIOXIDE 26.9 MMOL/L (24-32); eGFR > 90 ML/MIN
[2017-04-23] MEDS: nitroGLYCERIN 0.4mg SUBLingual tab SL PRN ×2 (20:02→20:13)
[2017-04-23] MEDS: morphine sulfate 8 MG/ML SYRINGE IV PRN (20:04)
[2017-04-23] MEDS ORDERED: hydrALAZINE 20mg/ml inj. IV PRN (21:05)
[2017-04-23] MEDS ORDERED: LORazepam 2 mg/ml vial IV PRN (22:20)
[2017-04-23] MEDS ORDERED: diltiazem 5mg/ml 5ml inj. IV ONE (22:20)
[2017-04-24 00:16] VITALS: BP 141/93
[2017-04-24] MEDS: ipratropium/albuterol 3ml nebule NEB SCH ×2 (02:50→08:59)
[2017-04-24 03:00] VITALS: BP 139/99
[2017-04-24 03:26] LABS: MAGNESIUM 1.6 MG/DL (1.5-2.4); PHOSPHORUS 3.6 MG/DL (2.3-4.5); POTASSIUM 4.1 MMOL/L (3.5-5.1); TROPONIN I < 0.04 NG/ML (0.0-0.05)
[2017-04-24] MEDS: HYDROcodone/acetaminophen 10/325mg tab PO PRN (05:22)
[2017-04-24] MEDS: lisinopril 10 MG tablet PO SCH (07:45)
[2017-04-24] MEDS: pantoprazole 40mg Tablet.DR PO SCH (07:45)
[2017-04-24] MEDS: lactobacillus rhamnosus 10,000 MMU CELLS/CAPSULE PO SCH (07:45)
[2017-04-24] MEDS: docusate sod 100mg capsule PO SCH (07:45)
[2017-04-24 08:15] LABS: IMMUNOGLOBULIN A, QN, SERUM 325 mg/dL (90-386); IMMUNOGLOBULIN M, QN, SERUM 146 mg/dL (20-172)
[2017-04-24] MEDS ORDERED: PANT40TA4 PO (08:56)
[2017-04-24] MEDS ORDERED: LEVO750T46 PO (08:56)
[2017-04-24] MEDS: NUT.TX.GLUC.INTOLER,LAC-FR,REG (BOOST GLUCOSE CONTROL) 237 ML PO SCH (08:56)
[2017-04-24] MEDS ORDERED: LISI-600 PO (08:56)
[2017-04-24] MEDS: levoFLOXACIN 750MG TABLET PO SCH (10:47)
== END 2017-04-24 11:05 | disposition home or self-care (01) | DRG 853 ==
LOC: ER 02:36 → ED HOLD 07:11 → PCU 3S 14:10 → CICU 2S 16:46 → PCU 3S 04-22 13:10
PROVIDERS: ADMIT Family Medicine; ATTEND Internal Medicine
PROC: 0W9D3ZZ Drainage of Pericardial Cavity, Percutaneous Approach (ICD-10-PCS; 2017-04-16)
PROC: 0W9D00Z Drainage of Pericardial Cavity with Drainage Device, Open Approach (ICD-10-PCS; 2017-04-17)
PROC: 02BN0ZX Excision of Pericardium, Open Approach, Diagnostic (ICD-10-PCS; 2017-04-17)
PROC: 05HM33Z Insertion of Infusion Device into Right Internal Jugular Vein, Percutaneous Approach (ICD-10-PCS; 2017-04-17)
PROC: B246ZZ4 Ultrasonography of Right and Left Heart, Transesophageal (ICD-10-PCS; principal; 2017-04-17 06:43)
DX: A41.89 Other specified sepsis (principal); J18.1 Lobar pneumonia, unspecified organism; J96.01 Acute respiratory failure with hypoxia; I31.4 Cardiac tamponade; I30.1 Infective pericarditis; N17.9 Acute kidney failure, unspecified; J90 Pleural effusion, not elsewhere classified; J44.1 Chronic obstructive pulmonary disease with (acute) exacerbation; J44.0 Chronic obstructive pulmonary disease with (acute) lower respiratory infection; I11.0 Hypertensive heart disease with heart failure; I50.9 Heart failure, unspecified; B96.89 Other specified bacterial agents as the cause of diseases classified elsewhere; I25.10 Atherosclerotic heart disease of native coronary artery without angina pectoris; K21.9 Gastro-esophageal reflux disease without esophagitis; M10.9 Gout, unspecified; J45.909 Unspecified asthma, uncomplicated; F17.200 Nicotine dependence, unspecified, uncomplicated; Z79.899 Other long term (current) drug therapy; Z72.89 Other problems related to lifestyle; Z86.73 Personal history of transient ischemic attack (TIA), and cerebral infarction without residual deficits
CPT/HCPCS: 36415; 36600; 71010; 71020; 71250; 80048; 80053; 82784; 82803; 82948; 83605; 83615; 83735; 83880; 83986; 84100; 84132; 84145; 84157; 84478; 84484; 85018; 85025; 85384; 85610; 85730; 86480; 86703; 86885; 86900; 86901; 86920; 87040; 87070; 87075; 87077; 87102; 87176; 87186; 87502; 87503; 88108; 88305; 89051; 93005; 93306; 93308; 93312; 93325; 94002; 94003; 94640; 94668; 94760; 96365; 96366; 97110; 97116; 97162; 97530; 99285; A6213; A6222; A6257; A6258; A6402; A6449; A7000; A7048; A7526; C9113; J0360; J0456; J0461; J0690; J0696; J1644; J1815; J1940; J1956; J2250; J2270; J2540; J2930; J3010; J3370; J3475; J3480; J3490; J7030; J7120; Q0163; Q9967

== ENCOUNTER 2017-04-29 15:27 | Inpatient (IN) | payer MEDICARE, OTHER ==
[~2017-04-29] VITALS: Ht 185.4 cm; Wt 113.6 kg
[~2017-04-29 15:27] MED LIST changes: -AMLO5TAB PO; -CLAR250T43 PO; +LEVO750T46 PO; +LISI-600 PO; -LISI40TA4 PO; -PANT-47 PO; +PANT40TA4 PO
[2017-04-29 16:18] LABS: CLARITY,URINE CLEAR (Clear); COLOR,URINE YELLOW (Yellow); GLUCOSE, URINE NEGATIVE (Neg); KETONES,URINE NEGATIVE (Neg); LEUKOCYTE ESTERASE ,URINE NEGATIVE (Neg); NITRITES, URINE NEGATIVE (Neg); OCCULT BLOOD,URINE TRACE-INTACT (Neg); PH,URINE 7.5 (4.8-8.0); PROTEIN,URINE TRACE mg/dl (Neg); UROBILINOGEN,URINE 0.2 E.U/dL (0.2-1.0)
[2017-04-29 16:31] LABS: RBC,URINE NONE SEEN /HPF (0-2); UA COLLECTION TYPE CLN CATCH MIDSTREAM; WBC,URINE 0-4 /HPF (0-4)
[2017-04-29 16:32] LABS: BACTERIA,URINE NONE SEEN /HPF (Neg); SQUAMOUS EPITHELIAL CELL,UR NONE SEEN /LPF (FEW)
[2017-04-29 16:55] LABS: BASOPHILS % (AUTO) 0.2 % (0-1); EOSINOPHILS # (AUTO) 0.3 X10'3 (0-0.9); EOSINOPHILS % (AUTO) 1.6 % (0-6); HEMATOCRIT 32.7 % (42.0-52.0); HEMOGLOBIN 10.7 g/dl (14.0-17.9); LYMPHOCYTES % (AUTO) 5.3 % (21-51); MEAN CORPUSCULAR HEMOGLOBIN 28.7 PG (27.0-31.0); MEAN CORPUSCULAR HGB CONC 32.7 % (33.0-36.5); MEAN CORPUSCULAR VOLUME 87.8 FL (78-98); MEAN PLATELET VOLUME 8.2 FL (7.4-10.4); MONOCYTES # (AUTO) 1.3 X10'3 (0-0.9); NEUTROPHILS # (AUTO) 15.8 X10'3 (1.8-7.7); NEUTROPHILS % (AUTO) 85.9 % (42-75); PLATELET COUNT 552 X10'3 (140-440); RED BLOOD COUNT 3.72 X10'6 (4.70-6.10); WHITE BLOOD COUNT 18.4 X10'3 (4.5-11.0)
[2017-04-29 17:06] LABS: INR 1.4 INR; PARTIAL THROMBOPLASTIN TIME 33 SECONDS (22-32); PROTHROMBIN TIME 14.2 SECONDS (9.0-12.0)
[2017-04-29 17:11] LABS: ALANINE AMINOTRANSFERASE 168 U/L (12-78); ALBUMIN 2.2 G/DL (3.4-5.0); ALBUMIN/GLOBULIN RATIO 0.4 (1.1-1.5); ALKALINE PHOSPHATASE 201 IU/L (46-116); ANION GAP 9 (8-16); ASPARTATE AMINO TRANSFERASE 156 U/L (10-37); BILIRUBIN,TOTAL 0.7 MG/DL (0.1-1.0); BLOOD UREA NITROGEN 13 MG/DL (7-18); BUN/CREATININE RATIO 12.3 (5.4-32.0); CALCIUM 8.3 MG/DL (8.5-10.1); CHLORIDE 99 MMOL/L (99-107); CREATININE 1.06 MG/DL (0.60-1.10); GLUCOSE 202 MG/DL (70-104); MAGNESIUM 1.5 MG/DL (1.5-2.4); POTASSIUM 3.5 MMOL/L (3.5-5.1); SODIUM 137 MMOL/L (135-145); TOTAL CARBON DIOXIDE 28.9 MMOL/L (24-32); TOTAL PROTEIN 7.1 G/DL (6.4-8.2); eGFR 73 ML/MIN
[2017-04-29] MEDS ORDERED: vancomycin inj 1,000 MG in normal saline 250ml IV soln 250 ML IV ONE (19:30)
[2017-04-29] MEDS ORDERED: normal saline 1000ml 1,000 ML IV ONE ×2 (19:34→21:00)
[2017-04-29] MEDS ORDERED: hydrALAZINE 20mg/ml inj. IV ONE (19:40)
[2017-04-29] MEDS ORDERED: lisinopril 10 MG tablet PO ONE (19:50)
[2017-04-29] MEDS ORDERED: magnesium hydroxide 30ml (MOM) UD suspension PO PRN (19:55)
[2017-04-29] MEDS ORDERED: acetaminophen 325mg tablet PO PRN (19:55)
[2017-04-29] MEDS ORDERED: ondansetron/PF 4mg/2ml inj IV PRN (19:55)
[2017-04-29] MEDS ORDERED: mag hydrox/Alum hydrox/simeth 30ml oral suspension PO PRN (19:55)
[2017-04-29] MEDS ORDERED: vancomycin/NS 1 GM ADD-VANTAGE 250 ML IV ONE ×2 (19:57→23:05)
[2017-04-29] MEDS ORDERED: piperacillin/tazo 3.375gm/50ml 50 ML IV SCH (20:00)
[2017-04-29] MEDS ORDERED: piperacillin/tazo 3.375gm/50ml 50 ML IV ONE (20:00)
[2017-04-29 20:22] LABS: ACETAMINOPHEN < 2.0 UG/ML (10-30)
[2017-04-29 20:30] VITALS: BP 145/78
[2017-04-29] MEDS: acetaminophen 325mg tablet PO PRN (21:18)
[2017-04-29 23:00] VITALS: BP 144/81
[2017-04-30] VITALS (9 sets, daily range): BP systolic 137–182; BP diastolic 87–111
[2017-04-30] MEDS: normal saline 1000ml 1,000 ML IV SCH ×3 (00:04→14:35)
[2017-04-30] MEDS: piperacillin/tazo 3.375gm/50ml 50 ML IV SCH ×2 (02:00→08:28)
[2017-04-30 05:59] LABS: BASOPHILS % (AUTO) 0.3 % (0-1); EOSINOPHILS # (AUTO) 0.3 X10'3 (0-0.9); EOSINOPHILS % (AUTO) 1.8 % (0-6); HEMATOCRIT 31.3 % (42.0-52.0); HEMOGLOBIN 10.2 g/dl (14.0-17.9); LYMPHOCYTES # (AUTO) 0.8 X10'3 (1.1-4.8); LYMPHOCYTES % (AUTO) 5.5 % (21-51); MEAN CORPUSCULAR HEMOGLOBIN 28.6 PG (27.0-31.0); MEAN CORPUSCULAR HGB CONC 32.6 % (33.0-36.5); MEAN CORPUSCULAR VOLUME 87.7 FL (78-98); MEAN PLATELET VOLUME 8.4 FL (7.4-10.4); MONOCYTES # (AUTO) 1.4 X10'3 (0-0.9); MONOCYTES % (AUTO) 9.3 % (2-12); NEUTROPHILS # (AUTO) 12.3 X10'3 (1.8-7.7); NEUTROPHILS % (AUTO) 83.1 % (42-75); PLATELET COUNT 467 X10'3 (140-440); RED BLOOD COUNT 3.57 X10'6 (4.70-6.10); RED CELL DISTRIBUTION WIDTH 13.8 % (11.5-14.5); WHITE BLOOD COUNT 14.8 X10'3 (4.5-11.0)
[2017-04-30 06:25] LABS: ALANINE AMINOTRANSFERASE 125 U/L (12-78); ALBUMIN/GLOBULIN RATIO 0.4 (1.1-1.5); ALKALINE PHOSPHATASE 173 IU/L (46-116); ANION GAP 6 (8-16); ASPARTATE AMINO TRANSFERASE 93 U/L (10-37); BILIRUBIN,TOTAL 0.9 MG/DL (0.1-1.0); BLOOD UREA NITROGEN 10 MG/DL (7-18); BUN/CREATININE RATIO 11.6 (5.4-32.0); CALCIUM 8.4 MG/DL (8.5-10.1); CHLORIDE 104 MMOL/L (99-107); CREATININE 0.86 MG/DL (0.60-1.10); GLUCOSE 111 MG/DL (70-104); POTASSIUM 3.8 MMOL/L (3.5-5.1); SODIUM 141 MMOL/L (135-145); TOTAL CARBON DIOXIDE 31.4 MMOL/L (24-32); TOTAL PROTEIN 6.7 G/DL (6.4-8.2); eGFR > 90 ML/MIN
[2017-04-30] MEDS: lisinopril 20mg tablet PO SCH (07:45)
[2017-04-30] MEDS: pantoprazole 40mg Tablet.DR PO SCH (07:45)
[2017-04-30 07:50] LABS: HEMOGLOBIN A1C 6.2 % (4.5-6.2)
[2017-04-30] MEDS: acetaminophen 325mg tablet PO PRN ×2 (12:08→18:57)
[2017-04-30] MEDS: penicillin G potassium inj 4,000,000 UNIT in normal saline 100ml IV soln 100 ML IV SCH ×2 (16:41→20:20)
[2017-04-30] MEDS ORDERED: metoprolol tartrate 1mg/ml inj IV ONE (18:50)
[2017-04-30] MEDS: methylPREDNISolone sod succ 125mg/2ml vial IV SCH (20:20)
[2017-04-30] MEDS: naproxen sodium 220mg tablet PO SCH (21:08)
[2017-05-01] MEDS: penicillin G potassium inj 4,000,000 UNIT in normal saline 100ml IV soln 100 ML IV SCH ×6 (00:26→20:34)
[2017-05-01 03:00] VITALS: BP 127/88
[2017-05-01] MEDS: normal saline 1000ml 1,000 ML IV SCH ×3 (04:18→23:00)
[2017-05-01 06:00] VITALS: BP 133/89
[2017-05-01] MEDS ORDERED: VANCOMYCIN LEVEL IV ONE (06:30)
[2017-05-01 06:50] LABS: BASOPHILS % (AUTO) 0.2 % (0-1); EOSINOPHILS # (AUTO) 0.1 X10'3 (0-0.9); EOSINOPHILS % (AUTO) 0.9 % (0-6); HEMOGLOBIN 10.2 g/dl (14.0-17.9); LYMPHOCYTES # (AUTO) 0.6 X10'3 (1.1-4.8); LYMPHOCYTES % (AUTO) 4.5 % (21-51); MEAN CORPUSCULAR HEMOGLOBIN 28.8 PG (27.0-31.0); MEAN CORPUSCULAR HGB CONC 32.9 % (33.0-36.5); MEAN CORPUSCULAR VOLUME 87.8 FL (78-98); MONOCYTES # (AUTO) 0.3 X10'3 (0-0.9); MONOCYTES % (AUTO) 2.6 % (2-12); NEUTROPHILS % (AUTO) 91.8 % (42-75); PLATELET COUNT 400 X10'3 (140-440); RED BLOOD COUNT 3.53 X10'6 (4.70-6.10); RED CELL DISTRIBUTION WIDTH 13.8 % (11.5-14.5); WHITE BLOOD COUNT 13.1 X10'3 (4.5-11.0)
[2017-05-01 08:18] LABS: ALANINE AMINOTRANSFERASE 102 U/L (12-78); ALBUMIN 1.9 G/DL (3.4-5.0); ALBUMIN/GLOBULIN RATIO 0.4 (1.1-1.5); ALKALINE PHOSPHATASE 166 IU/L (46-116); ANION GAP 9 (8-16); ASPARTATE AMINO TRANSFERASE 58 U/L (10-37); BILIRUBIN,TOTAL 0.5 MG/DL (0.1-1.0); BLOOD UREA NITROGEN 19 MG/DL (7-18); BUN/CREATININE RATIO 20.7 (5.4-32.0); CALCIUM 8.4 MG/DL (8.5-10.1); CHLORIDE 106 MMOL/L (99-107); CREATININE 0.92 MG/DL (0.60-1.10); GLUCOSE 160 MG/DL (70-104); POTASSIUM 4.3 MMOL/L (3.5-5.1); SODIUM 144 MMOL/L (135-145); TOTAL PROTEIN 6.8 G/DL (6.4-8.2); VANCOMYCIN,TROUGH 4.4 UG/ML (6.0-14.0); eGFR 85 ML/MIN
[2017-05-01] MEDS: methylPREDNISolone sod succ 125mg/2ml vial IV SCH ×2 (08:40→20:34)
[2017-05-01] MEDS: lisinopril 20mg tablet PO SCH (08:40)
[2017-05-01] MEDS: naproxen sodium 220mg tablet PO SCH ×2 (08:40→20:34)
[2017-05-01] MEDS: pantoprazole 40mg Tablet.DR PO SCH (08:41)
[2017-05-01] MEDS: LACTOBACILLUS RHAMNOSUS GG 15 billion unit sprinkle caps PO SCH (08:43)
[2017-05-01] MEDS ORDERED: FLU VACC QS2017-18 36MOS UP/PF 60 MCG/0.5 ML SYRINGE IMVAC ONE (10:00)
[2017-05-01] MEDS ORDERED: pneumococcal 23-VAL P-sac vacc 25 mcg/0.5ml vial IMVAC ONE (10:00)
[2017-05-01 11:00] VITALS: BP 138/90
[2017-05-01 15:00] VITALS: BP 154/93
[2017-05-01 18:00] VITALS: BP 158/92
[2017-05-01] MEDS: temazepam 15mg capsule PO PRN (20:34)
[2017-05-01 22:00] VITALS: BP 140/97
[2017-05-02] MEDS: penicillin G potassium inj 4,000,000 UNIT in normal saline 100ml IV soln 100 ML IV SCH ×4 (00:34→12:13)
[2017-05-02] MEDS: temazepam 15mg capsule PO PRN (00:37)
[2017-05-02 02:00] VITALS: BP 163/140
[2017-05-02] MEDS: hydrALAZINE 20mg/ml inj. IV PRN ×2 (03:07→12:14)
[2017-05-02 04:43] VITALS: BP 152/106
[2017-05-02 05:21] LABS: BASOPHILS % (AUTO) 0 % (0-1); EOSINOPHILS # (AUTO) 0.3 X10'3 (0-0.9); EOSINOPHILS % (AUTO) 1.8 % (0-6); HEMATOCRIT 33.3 % (42.0-52.0); HEMOGLOBIN 10.9 g/dl (14.0-17.9); LYMPHOCYTES # (AUTO) 0.5 X10'3 (1.1-4.8); LYMPHOCYTES % (AUTO) 3.1 % (21-51); MEAN CORPUSCULAR HEMOGLOBIN 28.9 PG (27.0-31.0); MEAN CORPUSCULAR HGB CONC 32.8 % (33.0-36.5); MEAN CORPUSCULAR VOLUME 88.1 FL (78-98); MEAN PLATELET VOLUME 8.4 FL (7.4-10.4); MONOCYTES # (AUTO) 0.5 X10'3 (0-0.9); MONOCYTES % (AUTO) 2.8 % (2-12); NEUTROPHILS # (AUTO) 15.4 X10'3 (1.8-7.7); NEUTROPHILS % (AUTO) 92.3 % (42-75); PLATELET COUNT 462 X10'3 (140-440); RED BLOOD COUNT 3.78 X10'6 (4.70-6.10); RED CELL DISTRIBUTION WIDTH 13.8 % (11.5-14.5); WHITE BLOOD COUNT 16.7 X10'3 (4.5-11.0)
[2017-05-02 06:00] VITALS: BP 166/111
[2017-05-02 06:09] LABS: ALANINE AMINOTRANSFERASE 202 U/L (12-78); ALBUMIN/GLOBULIN RATIO 0.4 (1.1-1.5); ALKALINE PHOSPHATASE 153 IU/L (46-116); ANION GAP 7 (8-16); ASPARTATE AMINO TRANSFERASE 239 U/L (10-37); BILIRUBIN,TOTAL 0.3 MG/DL (0.1-1.0); BLOOD UREA NITROGEN 32 MG/DL (7-18); BUN/CREATININE RATIO 32.7 (5.4-32.0); CALCIUM 8.8 MG/DL (8.5-10.1); CHLORIDE 106 MMOL/L (99-107); CREATININE 0.98 MG/DL (0.60-1.10); GLUCOSE 180 MG/DL (70-104); POTASSIUM 4.6 MMOL/L (3.5-5.1); SODIUM 144 MMOL/L (135-145); TOTAL CARBON DIOXIDE 30.9 MMOL/L (24-32); TOTAL PROTEIN 7.1 G/DL (6.4-8.2); eGFR 79 ML/MIN
[2017-05-02] MEDS: naproxen sodium 220mg tablet PO SCH (08:00)
[2017-05-02] MEDS: LACTOBACILLUS RHAMNOSUS GG 15 billion unit sprinkle caps PO SCH (08:27)
[2017-05-02] MEDS: lisinopril 20mg tablet PO SCH (08:27)
[2017-05-02] MEDS: pantoprazole 40mg Tablet.DR PO SCH (08:27)
[2017-05-02] MEDS: methylPREDNISolone sod succ 125mg/2ml vial IV SCH (08:27)
[2017-05-02] MEDS ORDERED: allopurinol 100mg tablet PO SCH (08:30)
[2017-05-02] MEDS ORDERED: albuterol 2.5 MG/3 ML nebule NEB PRN (10:10)
[2017-05-02 11:00] VITALS: BP 161/111
[2017-05-02 15:00] VITALS: BP 168/105
[2017-05-02] MEDS ORDERED: PRED10TA23 PO (15:00)
[2017-05-02] MEDS ORDERED: LEVO500T2 PO (15:00)
[2017-05-02] MEDS ORDERED: AMLO5TAB16 PO (15:00)
[2017-05-02] MEDS ORDERED: NAPR500T4 PO (15:02)
[2017-05-02 15:16] LABS: ABG BASE EXCESS 3.8 mmol/L (-2.0-3.0); ABG OXYGEN SATURATION 93.8 % (95-98); ABG PCO2 (T) 35.8 mmHg (35.0-48.0); ABG PH (T) 7.496 (7.350-7.450); ABG PO2 (T) 63.5 mmHg (83-108); ALLEN'S TEST Positive; FCOHb 0.3 % (0.5-1.5); FO2Hb 93.5 % (94-100); TOTAL HEMOGLOBIN 11.2 G/dl (14.0-18.0)
[2017-05-02] MEDS ORDERED: methylPREDNISolone sod succ/PF 40mg inj. IV SCH (20:00)
[2017-05-05 11:13] LABS: COMPLEMENT C3, SERUM 188 mg/dL (82-167); COMPLEMENT C4, SERUM 33 mg/dL (14-44)
== END 2017-05-02 15:49 | disposition home or self-care (01) | DRG 871 ==
LOC: ER 15:28 → ED HOLD 19:55 → PCU 3S 20:30
PROVIDERS: ADMIT Internal Medicine; ATTEND Emergency Medicine
DX: A41.9 Sepsis, unspecified organism (principal); J18.9 Pneumonia, unspecified organism; I30.1 Infective pericarditis; I11.0 Hypertensive heart disease with heart failure; I50.9 Heart failure, unspecified; M1A.9XX1 Chronic gout, unspecified, with tophus (tophi); I25.10 Atherosclerotic heart disease of native coronary artery without angina pectoris; D64.9 Anemia, unspecified; R73.9 Hyperglycemia, unspecified; Z79.899 Other long term (current) drug therapy; Z86.73 Personal history of transient ischemic attack (TIA), and cerebral infarction without residual deficits
CPT/HCPCS: 36415; 36600; 71045; 71250; 80053; 80202; 80329; 81001; 82803; 83036; 83605; 83735; 84145; 84550; 85018; 85025; 85610; 85651; 85730; 86160; 86162; 87040; 87070; 87077; 87186; 93005; 93306; 96374; 96375; 99285; J0360; J2270; J2540; J2543; J2930; J3370; J3490; J7030

== ENCOUNTER 2022-01-19 14:39 | Emergency (ER) | payer MEDICARE, OTHER ==
[~2022-01-19] VITALS: Ht 185.4 cm; Wt 120.5 kg
[~2022-01-19 14:39] MED LIST changes: +AMLO5TAB16 PO; -LEVO750T46 PO; -LISI-600 PO; +NAPR-996 PO; -PANT40TA4 PO; +PANT40TA54 PO
[2022-01-19 14:48] VITALS: BP 128/96
[2022-01-19] MEDS: allopurinol 100mg tablet PO ONE (19:36)
[2022-01-19] MEDS: indomethacin 25mg capsule PO ONE (19:36)
[2022-01-19] MEDS: dexamethasone sod phosphate 10mg/ml inj IM STA (20:34)
== END 2022-01-19 21:06 | disposition home or self-care (01) ==
LOC: ER 14:43
DX: M79.662 Pain in left lower leg (principal); M79.661 Pain in right lower leg; M25.561 Pain in right knee; I25.10 Atherosclerotic heart disease of native coronary artery without angina pectoris; I11.0 Hypertensive heart disease with heart failure; I50.9 Heart failure, unspecified; M10.9 Gout, unspecified; Z86.73 Personal history of transient ischemic attack (TIA), and cerebral infarction without residual deficits; Z87.01 Personal history of pneumonia (recurrent); Z98.890 Other specified postprocedural states; Z79.899 Other long term (current) drug therapy
CPT/HCPCS: 73564; 73610; 73630; 96372; 99284; J1100